=== PATIENT | female | born 1975 | race Caucasian/White ===

== ENCOUNTER 2025-05-09 15:31 | Inpatient (IN) | payer OTHER ==
[~2025-05-09] VITALS: Ht 165.1 cm; Wt 97.0 kg
[2025-05-09 16:35] VITALS: O2SAT 100
[2025-05-09 16:37] LABS: PLATELET COUNT (AUTO) 221 K/uL (150-450); RED BLOOD CELL COUNT(AUTO) 4.27 MIL/uL (4.00-5.20); RED CELL DISTRIBUTION WIDTH 13.1 % (11.5-14.5); WHITE BLOOD COUNT (AUTO) 3.4 K/uL (4.5-11.0)
[2025-05-09 16:43] LABS: CALCIUM, TOTAL 8.9 mg/dL (8.8-10.5); CREATININE 0.61 mg/dL (0.60-1.30); GLOMERULAR FILTR. RATE CALC > 60 mL/min (>60); GLUCOSE,RANDOM 98 mg/dL (70-110); SODIUM SERUM 140 mmol/L (136-145); UREA NITROGEN, BLOOD 13 mg/dL (7-18)
[2025-05-09 17:20] LABS: COVID AG,FIA SOURCE NASAL SWAB
[2025-05-09 17:58] LABS: SARS-COV2 (COVID) ANTIGEN,FIA Negative (Negative)
[2025-05-09] MEDS ORDERED: PROMETHAZINE HCL 25 MG TABLET PO PRN (23:15)
[2025-05-09] MEDS ORDERED: MAGNESIUM HYDROXIDE SUSPENSION 30 ML UDCUP PO PRN (23:15)
[2025-05-09] MEDS ORDERED: GuaiFENesin/D-METHORPHAN [SUGAR-FREE] 200-20MG/10 ML SYRUP UDCUP PO PRN (23:15)
[2025-05-09] MEDS ORDERED: LOPERAMIDE HCL 2 MG CAPSULE PO PRN ×2 (23:15)
[2025-05-09] MEDS ORDERED: ZOLPIDEM TARTRATE 10 MG TABLET PO PRN (23:15)
[2025-05-09] MEDS ORDERED: MAG HYDROX/ALUMINUM HYD/SIMETH ES 30 ML SUSPENSION UDCUP PO PRN (23:15)
[2025-05-09] MEDS ORDERED: ACETAMINOPHEN 325 MG TABLET PO PRN (23:15)
[2025-05-10] VITALS (11 sets, daily range): BP systolic 120–148; BP diastolic 75–100; PULSE 77–88; RESP 16–18; TEMP 97.2–98.2; O2SAT 98–99
[2025-05-10] MEDS: FOLIC ACID 1 MG TABLET PO SCH (08:19)
[2025-05-10] MEDS: MULTIVITAMINS WITH MINERALS, THERAPEUTIC TABLET PO SCH (08:19)
[2025-05-10] MEDS: NALTREXONE HCL 50 MG TABLET PO SCH (08:19)
[2025-05-10] MEDS: THIAMINE 100 MG TABLET PO SCH (08:19)
[2025-05-10] MEDS: CYANOCOBALAMIN 1,000 MCG/ML VIAL IM ONE (08:20)
[2025-05-10] MEDS: TUBERCULIN, PURIFIED PROTEIN DERIVATIVE 5 TU/0.1 ML SYRINGE ID ONE (09:18)
[2025-05-10 09:40] LABS: CHOL/HDL RATIO 3.2 (3.9-5.7); LDL CHOL (CALC.) 109.0 mg/dL (0-130)
[2025-05-10] MEDS: MELATONIN 5 MG TABLET PO SCH (20:12)
[2025-05-11] VITALS (8 sets, daily range): BP systolic 116–155; BP diastolic 68–100; PULSE 63–78; RESP 16–18; TEMP 97.2–97.8; O2SAT 96–99
[2025-05-12 08:18] VITALS: BP 133/85; PULSE 77; RESP 16; TEMP 97.2; O2SAT 100
[2025-05-12] MEDS: LOSARTAN POTASSIUM 25 MG TABLET PO SCH (08:19)
[2025-05-12] MEDS ORDERED: NALT50TA33 PO (17:34)
[2025-05-12] MEDS ORDERED: FLUO-418 PO (17:34)
[2025-05-12] MEDS ORDERED: MELA5TAB40 PO (17:34)
[2025-05-12 20:17] VITALS: BP 124/79; PULSE 74; RESP 17; TEMP 97; O2SAT 100
[2025-05-12 20:46] VITALS: BP 124/79; PULSE 74; RESP 16; TEMP 97; O2SAT 100
[2025-05-13 08:16] VITALS: BP 137/90; PULSE 72; RESP 17; TEMP 97.3; O2SAT 99
== END 2025-05-13 13:00 | disposition home or self-care (01) | DRG 885 ==
LOC: EMS 15:31 → B3A 23:13
PROVIDERS: ADMIT Psychiatry & Neurology Psychiatry; ATTEND Psychiatry & Neurology Psychiatry
PROC: GZHZZZZ Group Psychotherapy (ICD-10-PCS; principal; 2025-05-09)
PROC: GZ56ZZZ Individual Psychotherapy, Supportive (ICD-10-PCS; 2025-05-09)
PROC: GZ58ZZZ Individual Psychotherapy, Cognitive-Behavioral (ICD-10-PCS; 2025-05-09)
DX: F33.9 Major depressive disorder, recurrent, unspecified (principal); R45.851 Suicidal ideations; E66.9 Obesity, unspecified; I10 Essential (primary) hypertension; Z55.9 Problems related to education and literacy, unspecified; Z59.9 Problem related to housing and economic circumstances, unspecified; Z63.9 Problem related to primary support group, unspecified; Z65.3 Problems related to other legal circumstances; Z90.710 Acquired absence of both cervix and uterus; Z68.35 Body mass index [BMI] 35.0-35.9, adult
CPT/HCPCS: 76856; 80048; 80061; 83036; 84439; 84443; 84702; 84703; 85025; 86592; 99285; G0480; J3420